=== PATIENT | male | born 1965 | race Caucasian/White ===

== ENCOUNTER → 2023-09-20 13:58 | Outpatient (REF) | payer BC, SELFPAY | LOC: DHCBS MAIN 13:58 | PROVIDERS: ATTENDING PHYSICIAN Internal Medicine Cardiovascular Disease; FAMILY PHYSICIAN Family Medicine | DX: I35.0 Nonrheumatic aortic (valve) stenosis (principal) | CPT/HCPCS: 93306 ==

== ENCOUNTER → 2023-09-26 | Outpatient (REF) | payer BC, SELFPAY | LOC: DHSLP | PROVIDERS: ATTENDING PHYSICIAN Internal Medicine Critical Care Medicine; FAMILY PHYSICIAN Family Medicine | DX: G47.30 Sleep apnea, unspecified (principal); R06.83 Snoring; R53.83 Other fatigue | CPT/HCPCS: 95800 ==

== ENCOUNTER → 2023-10-31 19:19 | Outpatient (REF) | payer BC, SELFPAY | LOC: MRI 3T 19:19 | PROVIDERS: ATTENDING PHYSICIAN Radiology Radiation Oncology; FAMILY PHYSICIAN Family Medicine | DX: C79.31 Secondary malignant neoplasm of brain (principal) | CPT/HCPCS: 70553; A9575 ==

== ENCOUNTER → 2023-11-07 07:42 | Outpatient (REF) | payer BC, SELFPAY | LOC: RAD 07:42 | PROVIDERS: ATTENDING PHYSICIAN Internal Medicine; FAMILY PHYSICIAN Family Medicine | DX: C34.91 Malignant neoplasm of unspecified part of right bronchus or lung (principal) | CPT/HCPCS: 71260; 74177; Q9967 ==

== ENCOUNTER → 2024-02-07 19:29 | Outpatient (REF) | payer BC, SELFPAY | LOC: MRI 3T 19:29 | PROVIDERS: ATTENDING PHYSICIAN Radiology Radiation Oncology; FAMILY PHYSICIAN Family Medicine | DX: C79.31 Secondary malignant neoplasm of brain (principal); C79.49 Secondary malignant neoplasm of other parts of nervous system | CPT/HCPCS: 70553; 72156; A9575 ==

== ENCOUNTER → 2024-02-09 08:33 | Outpatient (REF) | payer BC, SELFPAY | LOC: RAD 08:33 | PROVIDERS: ATTENDING PHYSICIAN Internal Medicine; FAMILY PHYSICIAN Family Medicine | DX: C34.90 Malignant neoplasm of unspecified part of unspecified bronchus or lung (principal); F41.9 Anxiety disorder, unspecified; C34.91 Malignant neoplasm of unspecified part of right bronchus or lung; C34.80 Malignant neoplasm of overlapping sites of unspecified bronchus and lung; E03.2 Hypothyroidism due to medicaments and other exogenous substances; C90.00 Multiple myeloma not having achieved remission; C73 Malignant neoplasm of thyroid gland; R41.89 Other symptoms and signs involving cognitive functions and awareness; C34.01 Malignant neoplasm of right main bronchus | CPT/HCPCS: 71260; 74177; Q9967 ==

== ENCOUNTER → 2024-04-30 07:35 | Outpatient (REF) | payer BC, SELFPAY | LOC: RAD 07:35 | PROVIDERS: ATTENDING PHYSICIAN Internal Medicine; FAMILY PHYSICIAN Family Medicine | DX: C34.90 Malignant neoplasm of unspecified part of unspecified bronchus or lung (principal) | CPT/HCPCS: 71260; 74177; Q9967 ==

== ENCOUNTER → 2024-07-23 07:43 | Outpatient (REF) | payer BC, SELFPAY | LOC: RAD 07:43 | PROVIDERS: ATTENDING PHYSICIAN Internal Medicine; FAMILY PHYSICIAN Family Medicine | DX: C34.90 Malignant neoplasm of unspecified part of unspecified bronchus or lung (principal); F41.9 Anxiety disorder, unspecified; E03.2 Hypothyroidism due to medicaments and other exogenous substances; C90.00 Multiple myeloma not having achieved remission; C73 Malignant neoplasm of thyroid gland; R41.89 Other symptoms and signs involving cognitive functions and awareness; C34.01 Malignant neoplasm of right main bronchus; C34.80 Malignant neoplasm of overlapping sites of unspecified bronchus and lung | CPT/HCPCS: 71260; 74177; Q9967 ==

== ENCOUNTER → 2024-07-31 18:36 | Outpatient (REF) | payer BC, SELFPAY | LOC: MRI 3T 18:36 | PROVIDERS: ATTENDING PHYSICIAN Nurse Practitioner; FAMILY PHYSICIAN Family Medicine | DX: C34.91 Malignant neoplasm of unspecified part of right bronchus or lung (principal); C34.80 Malignant neoplasm of overlapping sites of unspecified bronchus and lung | CPT/HCPCS: 74183; A9575 ==

== ENCOUNTER → 2024-08-21 15:21 | Outpatient (REF) | payer BC, SELFPAY | LOC: MRI 3T 15:21 | PROVIDERS: ATTENDING PHYSICIAN Nurse Practitioner Family; FAMILY PHYSICIAN Family Medicine | DX: C79.31 Secondary malignant neoplasm of brain (principal) | CPT/HCPCS: 70553; A9575 ==

== ENCOUNTER → 2024-09-05 19:27 | Outpatient (REF) | payer BC, SELFPAY | LOC: MRI 3T 19:27 | DX: C79.31 Secondary malignant neoplasm of brain (principal); C79.49 Secondary malignant neoplasm of other parts of nervous system | CPT/HCPCS: 72156 ==

== ENCOUNTER → 2024-11-18 18:39 | Outpatient (REF) | payer BC, SELFPAY | LOC: MRI 3T 18:39 | PROVIDERS: ATTENDING PHYSICIAN Radiology Radiation Oncology; FAMILY PHYSICIAN Family Medicine | DX: C79.31 Secondary malignant neoplasm of brain (principal); C79.49 Secondary malignant neoplasm of other parts of nervous system | CPT/HCPCS: 72157; A9575 ==

== ENCOUNTER → 2024-11-25 18:25 | Outpatient (REF) | payer BC, SELFPAY | LOC: MRI 3T 18:25 | PROVIDERS: ATTENDING PHYSICIAN Radiology Radiation Oncology; FAMILY PHYSICIAN Family Medicine | DX: C79.51 Secondary malignant neoplasm of bone (principal) | CPT/HCPCS: 72158; A9575 ==

== ENCOUNTER → 2024-11-29 08:49 | Outpatient (REF) | payer BC, SELFPAY | LOC: RAD 08:49 | PROVIDERS: ATTENDING PHYSICIAN Internal Medicine; FAMILY PHYSICIAN Family Medicine | DX: C34.90 Malignant neoplasm of unspecified part of unspecified bronchus or lung (principal); C34.91 Malignant neoplasm of unspecified part of right bronchus or lung | CPT/HCPCS: 71260; 74177; Q9967 ==

== ENCOUNTER → 2024-12-02 18:56 | Outpatient (REF) | payer BC, SELFPAY | LOC: MRI 3T 18:56 | PROVIDERS: ATTENDING PHYSICIAN Nurse Practitioner Family | DX: C79.31 Secondary malignant neoplasm of brain (principal); C79.49 Secondary malignant neoplasm of other parts of nervous system | CPT/HCPCS: 70553; A9575 ==

== ENCOUNTER → 2025-02-27 08:46 | Outpatient (REF) | payer BC, SELFPAY | LOC: RST 08:46 | PROVIDERS: ATTENDING PHYSICIAN Nurse Practitioner Adult Health | DX: R05.9 Cough, unspecified (principal); J90 Pleural effusion, not elsewhere classified | CPT/HCPCS: 74230; 92611 ==

== ENCOUNTER → 2025-03-13 09:25 | Outpatient (REF) | payer BC, SELFPAY | LOC: PET 09:25 | PROVIDERS: ATTENDING PHYSICIAN Internal Medicine | DX: C34.90 Malignant neoplasm of unspecified part of unspecified bronchus or lung (principal) | CPT/HCPCS: 78815; A9552 ==

== ENCOUNTER → 2025-03-21 19:59 | Outpatient (REF) | payer BC, SELFPAY | LOC: MRI 3T 19:59 | PROVIDERS: ATTENDING PHYSICIAN Radiology Radiation Oncology; FAMILY PHYSICIAN Family Medicine | DX: C79.31 Secondary malignant neoplasm of brain (principal) | CPT/HCPCS: 70553; 72156; A9575 ==

== ENCOUNTER → 2025-04-11 15:49 | Outpatient (REF) | payer BC, SELFPAY | LOC: RCS 15:49 | PROVIDERS: ATTENDING PHYSICIAN Internal Medicine Critical Care Medicine; FAMILY PHYSICIAN Family Medicine | DX: N50.89 Other specified disorders of the male genital organs (principal) | CPT/HCPCS: 93306 ==

== ENCOUNTER 2025-05-02 14:33 | Outpatient (RCR) | payer BC, SELFPAY | END 2025-05-02 23:59 | disposition home or self-care (01) | LOC: RST 14:33 | PROVIDERS: ATTENDING PHYSICIAN Nurse Practitioner Adult Health | DX: R13.13 Dysphagia, pharyngeal phase (principal); J69.0 Pneumonitis due to inhalation of food and vomit; T17.800D Unspecified foreign body in other parts of respiratory tract causing asphyxiation, subsequent encounter; C79.31 Secondary malignant neoplasm of brain; C79.51 Secondary malignant neoplasm of bone; Z85.118 Personal history of other malignant neoplasm of bronchus and lung | CPT/HCPCS: 92526; 92610 ==

== ENCOUNTER → 2025-05-26 11:18 | Outpatient (REF) | payer BC, SELFPAY | LOC: HWRCS 11:18 | PROVIDERS: ATTENDING PHYSICIAN Internal Medicine Cardiovascular Disease; FAMILY PHYSICIAN Family Medicine | DX: R06.09 Other forms of dyspnea (principal) | CPT/HCPCS: 78452; 93017; A9500; J2785 ==

== ENCOUNTER → 2025-06-26 19:03 | Outpatient (REF) | payer BC, SELFPAY | LOC: MRI 3T 19:03 | PROVIDERS: ATTENDING PHYSICIAN Nurse Practitioner Adult Health; FAMILY PHYSICIAN Family Medicine | DX: C79.31 Secondary malignant neoplasm of brain (principal); C79.49 Secondary malignant neoplasm of other parts of nervous system | CPT/HCPCS: 70553; 72156; A9575 ==

== ENCOUNTER → 2025-07-03 18:58 | Outpatient (REF) | payer BC, SELFPAY | LOC: MRI 3T 18:58 | PROVIDERS: ATTENDING PHYSICIAN Radiology Radiation Oncology; FAMILY PHYSICIAN Family Medicine | DX: C79.31 Secondary malignant neoplasm of brain (principal); C79.49 Secondary malignant neoplasm of other parts of nervous system | CPT/HCPCS: 72157; A9575 ==

== ENCOUNTER → 2025-07-11 10:46 | Outpatient (REF) | payer BC, SELFPAY ==
[2025-07-11 11:00] VITALS: BP 87/73; BP_SYST 105
[2025-07-11 11:24] VITALS: BP 96/71; BP_SYST 100
== END ==
LOC: RADI 10:46
PROVIDERS: ATTENDING PHYSICIAN Nurse Practitioner; FAMILY PHYSICIAN Family Medicine
DX: J90 Pleural effusion, not elsewhere classified (principal)
CPT/HCPCS: 32555; 71045; 88112; 88305; 88341; 88342

== ENCOUNTER → 2025-08-01 13:37 | Outpatient (REF) | payer BC, SELFPAY ==
[2025-08-01 13:53] VITALS: BP 108/76; BP_SYST 102
[2025-08-01 14:15] VITALS: BP_SYST 102
== END ==
LOC: RADI 13:37
PROVIDERS: Internal Medicine Critical Care Medicine; ATTENDING PHYSICIAN Nurse Practitioner
DX: J90 Pleural effusion, not elsewhere classified (principal)
CPT/HCPCS: 32555; 71045; 82945; 83986; 84157; 84478; 87015; 87070; 87205; 88112; 88305

== ENCOUNTER → 2025-08-29 13:43 | Outpatient (REF) | payer BC, SELFPAY ==
[2025-08-28 13:55] VITALS: BP 100/79; BP_SYST 99
[2025-08-28 14:30] VITALS: BP 100/78; BP_SYST 101
== END ==
LOC: RADI 13:43
PROVIDERS: ATTENDING PHYSICIAN Nurse Practitioner
DX: J90 Pleural effusion, not elsewhere classified (principal)
CPT/HCPCS: 32555; 71045

== ENCOUNTER → 2025-09-08 13:38 | Outpatient (REF) | payer BC, SELFPAY | LOC: RAD 13:38 | PROVIDERS: ATTENDING PHYSICIAN Nurse Practitioner Acute Care; FAMILY PHYSICIAN Family Medicine | DX: Z01.810 Encounter for preprocedural cardiovascular examination (principal) | CPT/HCPCS: 71046 ==